=== PATIENT | female | born 1950 ===

== ENCOUNTER 2023-04-23 21:50 | Outpatient (REF) | payer MEDICARE, SELFPAY ==
[2023-04-23 21:31] LABS: ESR 24 mm/hr (0-30)
[2023-04-23 21:34] LABS: Abs Immature Grans 0.02 10^3/uL (0.0-0.06); Absolute Basophil Count 0.08 10^3/uL (0.0-0.2); Absolute Eosinophil Count 0.22 10^3/uL (0.0-0.7); Absolute Lymphocyte Count 3.16 10^3/uL (1.2-3.4); Absolute Neutrophil Count 4.73 10^3/uL (1.2-6.7); Basophils % 0.9; Eosinophils % 2.5; HCT 38.2 % (36.0-46.0); HGB 12.9 g/dL (11.2-15.7); Immature Grans % 0.2; Lymphocytes % 35.9; MCH 30.6 pg (27.0-33.0); MCHC 33.8 % (32.0-36.0); MCV 91 fL (80-95); MPV 12.2 fL (8.0-11.0); Monocytes % 6.8; Neutrophils % 53.7; Platelet Count 243 10^3/uL (130-400); RBC 4.22 10^6/uL (3.93-5.22); RDW-SD 42.8 fL; WBC 8.81 10^3/uL (4.4-10.8)
== END 2023-04-23 21:51 | disposition home or self-care (01) ==
LOC: LBN 21:50
PROVIDERS: Visit Provider Nurse Practitioner Family
DX: S67.21XA Crushing injury of right hand, initial encounter (principal); R22.30 Localized swelling, mass and lump, unspecified upper limb; X58.XXXA Exposure to other specified factors, initial encounter
CPT/HCPCS: 85652; 85025